=== PATIENT | male | born 1960 | race Asian ===

== ENCOUNTER 2017-02-06 21:46 | Emergency (ER) | payer OTHER ==
[2017-02-07 03:03] VITALS: BP 136/84
== END 2017-02-07 03:03 | disposition home or self-care (01) ==
LOC: ED 21:46
DX: H10.9 Unspecified conjunctivitis (principal); J02.9 Acute pharyngitis, unspecified; I10 Essential (primary) hypertension; E11.9 Type 2 diabetes mellitus without complications; Z79.84 Long term (current) use of oral hypoglycemic drugs; Z79.899 Other long term (current) drug therapy
CPT/HCPCS: Q0092